=== PATIENT | female | born 1995 | race Two or more races ===

== ENCOUNTER 2021-10-02 22:51 | Emergency (ER) | payer BC, MEDICAID ==
[~2021-10-02] VITALS: Ht 172.7 cm; Wt 95.3 kg
[2021-10-02 22:58] VITALS: BP 120/75
[2021-10-03 02:38] LABS: Basophils # (auto) 0 10 ^3/uL (0-0.2); Hematocrit 37.1 % (36.0-46.0); Lymphocytes # (auto) 1.6 10 ^3/uL (0.4-5.4); Monocytes # (auto) 0.4 10 ^3/uL (0-1.3); Neutrophils # (auto) 3.8 10 ^3/uL (1.6-8.6); Nucleated Red Blood Cells % 0.1 %
[2021-10-03 02:40] LABS: Basophils % (auto) 0.4 % (0.0-2.0); Eosinophils # (auto) 0.2 10 ^3/uL (0-0.8); Eosinophils % (auto) 2.8 % (0.0-7.0); Hemoglobin 12.4 g/dL (12.2-16.2); Lymphocytes % (auto) 27.1 % (10.0-50.0); Mean Corpuscular Hemoglobin 26.6 pg (28.0-32.0); Mean Corpuscular Hgb Conc. 33.5 g/dL (32.0-36.0); Mean Corpuscular Volume 79.6 fL (80.0-100.0); Monocytes % (auto) 6.9 % (0.0-12.0); Neutrophils % (auto) 62.8 % (37.0-80.0); Red Blood Cells 4.66 10^6/uL (4.0-5.20); Red Cell Distribution Width 13.6 % (11.8-14.3)
[2021-10-03 02:44] LABS: BUN/Creatinine Ratio 19.7; Magnesium 2.1 mg/dL (1.6-2.6); Potassium 3.8 mmol/L (3.5-5.1)
[2021-10-03] MEDS ORDERED: METOCLOPRAMIDE HCL 10 MG TAB PO ONE (02:45)
[2021-10-03] MEDS ORDERED: MECLIZINE HCL 25 MG TAB PO ONE (02:45)
[2021-10-03 02:47] LABS: Bilirubin, Total 0.3 mg/dL (0.2-1.0); Total Protein 8.2 g/dL (6.4-8.2)
[2021-10-03 04:36] LABS: Urine Bacteria NONE SEEN /hpf (None Seen); Urine Blood Negative /uL (Negative); Urine Mucus FEW (None Seen); Urine Specific Gravity 1.011 (1.001-1.035); Urine WBC 2 /hpf (0 - 5)
== END 2021-10-03 10:48 | disposition left against medical advice (07) ==
LOC: ER 22:51
DX: R07.89 Other chest pain (principal); Z98.51 Tubal ligation status; Z53.29 Procedure and treatment not carried out because of patient's decision for other reasons
CPT/HCPCS: 36415; 71045; 80053; 81001; 81025; 83735; 85025; 93005; 99285; J8597